=== PATIENT | male | born 1995 | race Caucasian/White ===

== ENCOUNTER 2021-05-14 21:29 | Emergency (ER) | payer BC, OTHER ==
[~2021-05-14] VITALS: Ht 180.3 cm; Wt 61.2 kg
[2021-05-14 21:30] VITALS: BP_SYST 121
--- NOTE | 2021-05-14 21:30 | NUR ---
Patient to ER bed 01 to gown for evaluation. Side rails up. Report given to GREGORY Dougherty
--- NOTE | 2021-05-14 22:02 | NUR ---
ER Dr. Owen at bedside examining patient.
[2021-05-14] MEDS ORDERED: NACL 0.9% 1,000 ML IV ONE (22:15)
--- NOTE | 2021-05-14 22:15 | NUR ---
Patient transported to radiology via wheelchair, accompanied by staff.
--- NOTE | 2021-05-14 22:20 | NUR ---
Returned from radiology, back to [facility].
--- NOTE | 2021-05-14 22:20 | NUR ---
Assumed total care of patient. Patient AAO x4 from home c/o near syncope episode at home while eating dinner. Patient reports he began to see stars and it lasted for about 3-5 minutes. Patient denies dizziness, nausea, vomiting, lightheadedness, blurry vision, SOB, or pain. Patient placed on quality assurance monitor. VSS, breathing even and unlabored, no signs of acute distress noted. Will continue to monitor.
--- NOTE | 2021-05-14 22:21 | NUR ---
Patient ambulated to restroom with steady gait to provide urine sample. Will collect specimen and send to lab.
--- NOTE | 2021-05-14 22:30 | NUR ---
# 20 gauge angiocath placed to RIGHT AC. Use of asceptic technique. Opsite placed over site. Blood return noted. Blood for lab drawn from site. Flushed with 10 cc of normal saline. No evidence of infiltration noted. Patient tolerated well.
[2021-05-14 22:56] LABS: BILIRUBIN,URINE NEGATIVE (NEGATIVE); BLOOD, URINE NEGATIVE (NEGATIVE); CLARITY/URINE CLEAR (CLEAR); COLOR,URINE YELLOW (YELLOW); GLUCOSE,URINE NEGATIVE (NEGATIVE); KETONES,URINE TRACE (NEGATIVE); LEUKOCYTE ESTERASE ,URINE NEGATIVE (NEGATIVE); NITRITE, URINE NEGATIVE (NEGATIVE); PROTEIN URINE NEGATIVE (NEGATIVE)
--- NOTE | 2021-05-14 23:01 | NUR ---
Mother at bedside
[2021-05-14 23:06] LABS: CALCIUM 8.9 mg/dL (8.4-11.0); CREATININE 0.92 mg/dL (0.55-1.30); POTASSIUM 3.7 mmol/L (3.5-5.1)
[2021-05-14 23:07] LABS: BARBITURATE, URINE NEGATIVE (NEG <=200); BENZODIAZEPINE, URINE NEGATIVE (NEG <=150); CANNABINOID, URINE POSITIVE (NEG <=50); COCAINE, URINE NEGATIVE (NEG <=150); METHAMPHETAMINES SCREEN,URINE POSITIVE (NEG <=500); URINE AMPHETAMINE POSITIVE (NEG <=500); URINE METHADONE NEGATIVE (NEG <=200)
[2021-05-14 23:08] LABS: OPIATE, URINE NEGATIVE (NEG <=100); PHENCYCLIDINE SCREEN,URINE NEGATIVE (NEG <=25); UR TRICYCLIC ANTIDEPRESSANTS NEGATIVE (NEG <=300); URINE OXYCODONE SCREEN NEGATIVE (NEG <=100); URINE PROPOXYPHENE SCREEN NEGATIVE (NEG <=300)
[2021-05-14 23:12] LABS: BASOPHILS % (AUTO) 0.2 % (0.0-2.0); EOSINOPHILS % (AUTO) 0.2 % (0.0-4.0); HEMATOCRIT 43.7 % (36-54); HEMOGLOBIN 15.3 g/dL (14.0-18.0); LYMPHOCYTES # (AUTO) 0.9 K/uL (1.0-5.5); MEAN CORPUSCULAR HEMOGLOBIN 33 pg (27-31); MEAN CORPUSCULAR HGB CONC 35 % (32-36); MEAN CORPUSCULAR VOLUME 94 fL (79.0-98.0); MONOCYTES # (AUTO) 0.6 K/uL (0.0-1.0); MONOCYTES % (AUTO) 7.2 % (1.7-9.3); NEUTROPHILS # (AUTO) 6.8 K/uL (1.8-7.7); NEUTROPHILS % (AUTO) 81.4 % (40.0-70.0); PLATELET COUNT (AUTO) 264 K/uL (130-430); RED BLOOD CELL COUNT(AUTO) 4.64 MIL/uL (4.2-6.2); RED CELL DISTRIBUTION WIDTH 13.3 % (9.0-15.0); WHITE BLOOD COUNT (AUTO) 8.4 K/uL (4.8-10.8)
[2021-05-14 23:13] LABS: PROTHROMBIN TIME 10.3 SECS (9.5-12.5)
[2021-05-14 23:16] LABS: ALBUMIN 4.3 g/dL (3.4-4.8); TOTAL BILIRUBIN 1.1 mg/dL (0.0-1.0)
--- NOTE | 2021-05-14 23:53 | NUR ---
Dr. Owen at bedside reviewing results with patient.
[2021-05-15 00:20] VITALS: BP_SYST 119
--- NOTE | 2021-05-15 00:20 | NUR ---
Patient given written and verbal discharge instructions and verbalizes understanding. ER MD discussed with patient the results and treatment provided. Patient in stable condition. ID arm band removed. NO RX given. Patient educated on pain management and to follow up with PMD. Pain Scale 0/10 Opportunity for questions provided and answered.
== END 2021-05-15 00:20 | disposition home or self-care (01) ==
LOC: SED 21:29
DX: S00.83XA Contusion of other part of head, initial encounter (principal); R55 Syncope and collapse; F12.10 Cannabis abuse, uncomplicated; F41.9 Anxiety disorder, unspecified; F32.9 Major depressive disorder, single episode, unspecified; Z79.899 Other long term (current) drug therapy; W18.39XA Other fall on same level, initial encounter; Y93.89 Activity, other specified; Y92.89 Other specified places as the place of occurrence of the external cause; Y99.8 Other external cause status
CPT/HCPCS: 36415; 70450; 71045; 76376; 80053; 80307; 81003; 84484; 85025; 85610; 85730; 93005; 96360; 99285; G0482; J7030